=== PATIENT | male | born 2000 | race Caucasian/White ===

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

== ENCOUNTER 2019-05-28 17:40 | Emergency (ER) | payer OTHER ==
[2019-05-28] MEDS ORDERED: LIDOCAINE 1% 10 ML VIAL INJ ONE (18:25)
[2019-05-28] MEDS ORDERED: TETANUS,DIPHTHERIA,PERTUSSIS 1 EA SYG IM ONE (19:01)
[2019-05-28 19:17] VITALS: O2SAT 97
--- NOTE | 2019-05-28 19:53 | ED.PDOC ---
History of Present Illness - General Chief Complaint: Laceration Stated Complaint: R wrist laceration Time Seen by Provider: 05/28/19 19:01 Source: patient, RN notes reviewed, Vital Signs reviewed Exam Limitations: no limitations - History of Present Illness Initial Comments: Pt at work when a piece of fascia board fell and struck his right wrist and he sustained a laceration to his right wrist. Pt's tetanus IS NOT UTD. Pt denies any numbness, tingling, wrist(bone) pain. No f/c/n/v. Timing/Duration: just prior to arrival Severity: mild Location: extremities - right lateral wrist Worsening Factors: movement Associated Symptoms: denies symptoms Allergies/Adverse Reactions: Allergies Sulfamethoxazole w/Trimethoprim [From Bactrim] Allergy (Verified 05/28/19 18:37) Review of Systems - Review of Systems Constitutional: States: no symptoms reported EENTM: States: no symptoms reported Respiratory: States: no symptoms reported Cardiology: States: no symptoms reported Gastrointestinal/Abdominal: States: no symptoms reported Genitourinary: States: no symptoms reported Musculoskeletal: States: no symptoms reported Skin: States: other - laceration right wrist. Neurological: States: no symptoms reported All other Systems: Reviewed and Negative Past Medical History (General) - Patient Medical History Hx Seizures: No Hx Stroke: No Hx Dementia: No Hx Asthma: No Hx of COPD: No Hx Cardiac Disorders: No Hx Congestive Heart Failure: No Hx Pacemaker: No Hx Hypertension: No Hx Thyroid Disease: No Hx Diabetes: No Hx Gastroesophageal Reflux: No Hx Renal Disease: No Hx Cancer: No Hx of HIV: No Hx Hepatitis C: No Hx MRSA: No Surgical History: other - Vaccination History Hx Tetanus, Diphtheria Vaccination: No Hx Influenza Vaccination: Yes - Social History Hx Tobacco Use: Yes - Vape Hx Chewing Tobacco Use: Yes Hx Alcohol Use: No Hx Substance Use: No Hx Substance Use Treatment: No Hx Depression: No Hx Physical Abuse: No Hx Emotional Abuse: No Hx Suspected Abuse: No - Female History Patient is a Female of Child Bearing Age (10 -59 yrs old): No Patient : No Family Medical History - Family History Father Living Status: Still Living Hx Family Hypertension: Yes Hx Cardiac Disease: Yes Hx Family Diabetes: Yes Mother Family History: No Known Physical Exam - Physical Exam General Appearance: Alert, Comfortable, Well Developed, Well Hydrated, Well Nourished Eyes, Ears, Nose, Throat Exam: PERRL/EOMI, normal ENT inspection, pharynx normal Neck: non-tender, full range of motion, supple Cardiovascular/Chest: normal peripheral pulses, regular rate, rhythm, no edema, no gallop, no JVD, no murmur Respiratory: chest non-tender, lungs clear, normal breath sounds, no respiratory distress, no accessory muscle use Gastrointestinal/Abdominal: normal bowel sounds, non tender Extremity: other - laceration right wrist 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 Tdap given. Plan d/c home with f/u in 2 weeks for suture removal. d/w pt POC and he voices agreement and understanding. Italo Urbina M.D. #[id number] Procedures - Laceration/Wound Repair Right Lateral Wrist Wound Length (cm): 4 Wound's Depth, Shape: superficial, linear, contused tissue Wound Explored: foreign body removed - saw dust Irrigated w/ Saline (cc's): 250 Betadine Prep?: No Anesthesia: 1% Lidocaine Volume Anesthetic (cc's): 4 Wound Debrided: minimal Wound Repaired With: sutures Suture Size/Type: 3:0, prolene Number of Sutures: 5 Layer Closure?: No Sterile Dressing Applied?: Yes Splint Applied?: No Sling Applied?: No Departure - Departure Clinical Impression: Laceration, Tetanus toxoid inoculation Time of Disposition: 19:59 Disposition: Discharge to Home or Self Care Condition: Good Departure Forms: ED Discharge - Pt. Copy, Patient Portal Self Enrollment Instructions: DI for Laceration Repair, DI for Laceration Repair -- Simple Referrals: Jerald Raymond MD [Primary Care Provider] - 1-2 Weeks Additional Instructions: Return in 2 weeks for suture removal.
[2019-05-28 20:10] VITALS: BP 138/79; TEMP 98.1
== END 2019-05-28 20:05 | disposition home or self-care (01) ==
LOC: ER 17:40
DX: S61.512A Laceration without foreign body of left wrist, initial encounter (principal); Z88.2 Allergy status to sulfonamides; W20.8XXA Other cause of strike by thrown, projected or falling object, initial encounter; Y99.0 Civilian activity done for income or pay; Y92.69 Other specified industrial and construction area as the place of occurrence of the external cause; Z87.891 Personal history of nicotine dependence